=== PATIENT | male | born 1975 | race Caucasian/White ===

== ENCOUNTER → 2018-07-09 | Outpatient (REF) ==
--- NOTE | 2018-07-09 19:10 | REP ---
Right knee five views : There is no fracture or dislocation. Mineralization and joint spaces are normal. There are no calcifications or foreign bodies. Impression: Negative right knee . Electronically Signed by Jacky Mazariegos MD 07/09/2018 07:02 P
== END ==
LOC: M SMT 09:46
PROVIDERS: ATTEND Internal Medicine
DX: M17.11 Unilateral primary osteoarthritis, right knee (principal)

== ENCOUNTER → 2019-11-25 | Outpatient (CLI) | payer OTHER ==
[~2019-11-25] MED LIST: E-Z-GAS II EFFERVESCENT PACKET (SODIUM BICARB./CITRIC ACID/SIMETHICONE) As Ordered ONE; E-Z-HD 98% w/w 340GM SUSP BTL As Ordered ONE; E-Z-PAQUE 96% w/w SUSP 176GM BTL As Ordered ONE
--- NOTE | 2020-01-17 08:45 | REP ---
ESOPHAGRAM, AIR CONTRAST: The procedure was performed under the direct supervision of Dr. Manley. The images were reviewed with Dr. Manley. 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 The superior mediastinal structures are midline. The heart size is within normal limits. The lungs are clear. Liquid barium and gas-producing granules were given in the erect position as well as liquid barium in the prone oblique position in order to perform a double contrast esophagram examination. The oral and pharyngeal states of deglutition are unremarkable. Esophageal transport is prompt and efficient and there is no esophagitis or stricture, mucosal ring or hiatal hernia. There is gastroesophageal reflux demonstrated to above the level of the freddie. IMPRESSION: There is gastroesophageal reflux demonstrated to above the level of the freddie. Otherwise, unremarkable double contrast esophagram examination. 0.5 minutes of fluoroscopy time was utilized for this procedure. [facility]
== END ==
LOC: M RAD 08:37
PROVIDERS: ATTEND Nurse Practitioner Family
DX: K21.9 Gastro-esophageal reflux disease without esophagitis (principal); R13.10 Dysphagia, unspecified